=== PATIENT | male | born 1950 | race Caucasian/White ===

== ENCOUNTER 2018-11-17 13:31 | Emergency (ER) | payer OTHER ==
--- NOTE | 2018-11-17 14:16 | RAD ---
PORTABLE CHEST ONE VIEW: 11/17/2018 1:45 p.m. HISTORY: Cough. Difficulty breathing. COMPARISON: 07/14/2018 FINDINGS: Changes of median sternotomy are again seen. The heart size is normal. The lungs are well expanded wi thout focal areas of consolidation, pneumothoraces or pleural effusions. IMPRESSION: No radiographic evidence of acute cardiopulmonary process. POS: [facility]
[2018-11-17] MEDS ORDERED: Dexamethasone 4 mg/ml Vial ONE (14:22)
[2018-11-17] MEDS ORDERED: Magnesium 2 GM/50 ML BAG (IN WATER) ONE (14:22)
[2018-11-17] MEDS ORDERED: Dexamethasone 10 MG/ML VIAL ONE (14:24)
[2018-11-17 14:32] LABS: #Eosinphils 0.8 thou/uL (0.0-0.7); #Lymphocytes 1.7 thou/uL (1.20-3.40); #Monocytes 0.7 thou/uL (0.11-0.59); #Neutrophils 6.3 thou/uL (1.40-6.50); %Basophils 0.5 % (0.0-1.0); %Eosinophils 8.4 % (0.0-10.0); %Lymphocytes 17.5 % (21.0-51.0); %Monocytes 7.6 % (0.0-10.0); %Neutrophils 65.9 % (42.0-75.0); Hemoglobin 16.3 g/dL (14.0-18.0); Mean Corpuscular Hemoglobin 31.8 pg (27.0-31.0); Mean Platelet Volume 7.9 fL (7.4-10.4); Platelet Count 195 thou/uL (130-400); RBC Distribution Width 11.6 % (11.5-14.5); Red Blood Cell (RBC) Count 5.11 mill/uL (4.70-6.10); White Blood Cell (WBC) Count 9.6 thou/uL (4.8-10.8)
[2018-11-17 14:55] LABS: ALT (SGPT) 21 U/L (8-55); AST (SGOT) 18 U/L (5-34); Albumin 4.5 g/dL (3.4-4.8); Alkaline Phosphatase 71 U/L (40-110); Anion Gap 14 mmol/L (10-20); BUN (Urea Nitrogen) 12 mg/dL (8.4-25.7); Bilirubin, Total 0.9 mg/dL (0.2-1.2); CK (CPK) 135 U/L (30-200); Calc. Creatinine Clearance 0 mL/min (70-130); Calcium 9.7 mg/dL (7.8-10.44); Carbon Dioxide 22 mmol/L (23-31); Chloride 102 mmol/L (98-107); Estimated GFR-MDRD 77; Globulin 2.6 g/dL (2.4-3.5); Glucose 132 mg/dL (80-115); Lipase 47 U/L (8-78); Potassium 4.1 mmol/L (3.5-5.1); Protein, Total 7.1 g/dL (5.8-8.1); Sodium 134 mmol/L (136-145)
[2018-11-17 16:06] LABS: Bilirubin Negative (Negative); Blood, Urine Negative (Negative); Clarity Clear (Clear); Glucose, Urine (Dipstick) Normal (Negative); Leukocyte Negative Leu/uL (Negative); Nitrite Negative (Negative); Protein, Urine (Dipstick) Negative (Neg-Trace); Urobilinogen Normal mg/dL (Less than 2)
[2018-11-17 16:09] LABS: Troponin I Less than 0.010 ng/mL (< 0.028)
== END 2018-11-17 17:25 | disposition home or self-care (01) ==
LOC: ERS 13:31
DX: J18.9 Pneumonia, unspecified organism (principal); E11.9 Type 2 diabetes mellitus without complications; E78.5 Hyperlipidemia, unspecified; E03.9 Hypothyroidism, unspecified; Z79.84 Long term (current) use of oral hypoglycemic drugs; Z79.899 Other long term (current) drug therapy
CPT/HCPCS: 36415; 71045; 80053; 81003; 82550; 83605; 83690; 83880; 84484; 85025; 87040; 87804; 93005; 94644; 96365; 96366; 96375; J1100; J1956; J3475; J7620

== ENCOUNTER 2022-03-20 16:59 | Observation (INO) | payer MEDICARE ==
[2022-03-20] MEDS ORDERED: HumaLOG 300 UNITS/3 ML VIAL SC PRN ×2 (22:44)
[2022-03-20] MEDS ORDERED: Ondansetron PF 4 MG/2 ML Vial IVP PRN (22:44)
[2022-03-20] MEDS ORDERED: Acetaminophen 325 MG TAB PO PRN (22:44)
[2022-03-20] MEDS ORDERED: Dextrose 50% Abboject 50 ML SYRINGE SLOW IVP PRN (22:44)
[2022-03-20] MEDS ORDERED: Bisacodyl 10 MG SUPP PR PRN (22:44)
[2022-03-20] MEDS ORDERED: Dextrose 5% in Water 1,000 ML IV PRN (22:44)
[2022-03-20] MEDS ORDERED: Senokot S 8.6-50 MG TAB PO PRN (22:44)
[2022-03-20] MEDS ORDERED: Bisacodyl 5 MG TAB PO PRN (22:44)
[2022-03-20] MEDS ORDERED: Magnesium Sulfate In Water 4 GM in Premix Bag 1 BAG IVPB SCH (23:00)
[2022-03-20 23:05] VITALS: BMI 29.9
[2022-03-21] MEDS: Sodium Chloride 0.9% 1,000 ML IV SCH ×2 (00:23→15:06)
[2022-03-21 00:51] LABS: Troponin I Less than 0.010 ng/mL (< 0.028)
[2022-03-21 05:40] LABS: #Eosinphils 0.7 thou/uL (0.0-0.7); #Lymphocytes 1.6 thou/uL (1.20-3.40); #Monocytes 0.9 thou/uL (0.11-0.59); #Neutrophils 6.8 thou/uL (1.40-6.50); %Basophils 0.3 % (0.0-1.0); %Eosinophils 6.9 % (0.0-10.0); %Lymphocytes 15.7 % (21.0-51.0); %Neutrophils 68.1 % (42.0-75.0); Hemoglobin 15.2 g/dL (14.0-18.0); Mean Corpuscular HGB CONC 33.7 g/dL (32.0-36.0); Mean Corpuscular Hemoglobin 32.1 pg (27.0-31.0); Mean Corpuscular Volume 95.2 fl (78.0-98.0); Mean Platelet Volume 7.9 fL (7.4-10.4); Platelet Count 187 10x3/uL (130-400); RBC Distribution Width 11.4 % (11.5-14.5); Red Blood Cell (RBC) Count 4.73 mill/uL (4.70-6.10)
[2022-03-21 05:52] LABS: Hemoglobin A1c 6.8 % (4.0-6.0)
[2022-03-21] MEDS ORDERED: Levothyroxine Sodium 50 MCG TAB PO SCH (06:00)
[2022-03-21 06:12] LABS: Troponin I Less than 0.010 ng/mL (< 0.028)
[2022-03-21 06:13] LABS: Anion Gap 12 mmol/L (10-20); BUN (Urea Nitrogen) 13 mg/dL (8.4-25.7); Calc. Creatinine Clearance 124 mL/min (70-130); Calcium 9.1 mg/dL (7.8-10.44); Carbon Dioxide 26 mmol/L (23-31); Cardiac Risk 2.4 (Less than 4.5); Chloride 104 mmol/L (98-107); Cholesterol 85 mg/dl (< 200 Desired); Estimated GFR 94; Glucose 103 mg/dL (83-110); HDL Cholesterol 36 mg/dL (>60 Neg Risk); LDL Cholesterol, Calculated 32 mg/dL; Magnesium 2.4 mg/dL (1.6-2.6); Potassium 4.4 mmol/L (3.5-5.1); Sodium 138 mmol/L (136-145); Triglycerides 86 mg/dL (Less than 150)
[2022-03-21] MEDS ORDERED: Ezetimibe 10 MG TAB PO SCH (09:00)
[2022-03-21] MEDS ORDERED: Aspirin Chewable 81 MG TAB PO SCH (09:00)
[2022-03-21] MEDS ORDERED: Meclizine HCl 25 MG TAB PO PRN (12:32)
[2022-03-21] MEDS ORDERED: Meclizine HCl 25 MG TAB PO SCH (12:45)
[2022-03-21] MEDS ORDERED: Clopidogrel Bisulfate 75 MG TAB PO SCH (13:15)
[2022-03-21] MEDS: FLU VACC QS2022-23(65YR UP)/PF 240 MCG/0.7 ML SYRINGE IM ONE ×2 (13:47→17:41)
[2022-03-21] MEDS ORDERED: metFORMIN 850 MG TAB PO SCH (15:00)
[2022-03-21 17:20] VITALS: BP 102/63; TEMP 97.5
[2022-03-21] MEDS ORDERED: Atorvastatin Calcium 40 MG TAB PO SCH (21:00)
[2022-03-22] MEDS ORDERED: Rosuvastatin 20 MG TAB PO SCH (09:00)
[2022-03-22] MEDS ORDERED: Clopidogrel Bisulfate 75 MG TAB PO SCH (09:00)
== END 2022-03-21 18:58 | disposition home or self-care (01) ==
LOC: NEURO 16:59
PROVIDERS: ADMIT Internal Medicine; ATTEND Internal Medicine
DX: R42 Dizziness and giddiness (principal); I25.10 Atherosclerotic heart disease of native coronary artery without angina pectoris; I10 Essential (primary) hypertension; E11.9 Type 2 diabetes mellitus without complications; E03.9 Hypothyroidism, unspecified; I25.2 Old myocardial infarction; I65.23 Occlusion and stenosis of bilateral carotid arteries; I08.8 Other rheumatic multiple valve diseases; Z23 Encounter for immunization; Z79.02 Long term (current) use of antithrombotics/antiplatelets; Z79.4 Long term (current) use of insulin; Z79.82 Long term (current) use of aspirin; Z79.84 Long term (current) use of oral hypoglycemic drugs; Z79.890 Hormone replacement therapy; Z79.899 Other long term (current) drug therapy; Z88.0 Allergy status to penicillin; Z95.1 Presence of aortocoronary bypass graft; Z95.5 Presence of coronary angioplasty implant and graft; Z20.822 Contact with and (suspected) exposure to COVID-19
CPT/HCPCS: 70551; 80048; 80061; 82962; 83036; 83735; 84443; 84484; 85025; 90662; 93306; 93880; 94760; G0008; J3475; U0003; U0005; 36415; 36416; 90471; 96374; G0378; J7050

== ENCOUNTER 2024-09-26 12:34 | Day surgery (SDC) | payer OTHER ==
[2024-09-25 16:10] VITALS: BMI 30.5
[2024-09-26 16:06] LABS: Fluid, Triglycerides 17.0 mg/dL (Not Available); Pleural Fluid, Amylase 52.0 U/L (Not Available); Pleural Fluid, Glucose 156.0 mg/dL; Pleural Fluid, LDH 273.0 U/L (Not Available); Pleural Fluid, Protein 4.3 g/dL
[2024-09-26 16:20] LABS: RBC Count-Automated (BF) 271 /cu.mm; WBC/Nucleated-Auto (BF) 2719 /cu.mm
[2024-09-26 17:20] LABS: BF Segmented Neutrophils 50 %; Cell Count Non Hematic 35 %
== END 2024-09-26 16:07 | disposition home or self-care (01) ==
LOC: SDC 12:34
PROVIDERS: ATTEND Internal Medicine
PROC: 0W9B3ZZ Drainage of Left Pleural Cavity, Percutaneous Approach (ICD-10-PCS; principal; 2024-09-26)
DX: J90 Pleural effusion, not elsewhere classified (principal); J44.9 Chronic obstructive pulmonary disease, unspecified; I11.0 Hypertensive heart disease with heart failure; I50.9 Heart failure, unspecified; I25.10 Atherosclerotic heart disease of native coronary artery without angina pectoris; E11.9 Type 2 diabetes mellitus without complications; E03.9 Hypothyroidism, unspecified; Z95.1 Presence of aortocoronary bypass graft; Z86.73 Personal history of transient ischemic attack (TIA), and cerebral infarction without residual deficits; Z87.891 Personal history of nicotine dependence; Z90.49 Acquired absence of other specified parts of digestive tract; Z98.890 Other specified postprocedural states; Z88.0 Allergy status to penicillin; Z79.84 Long term (current) use of oral hypoglycemic drugs; Z79.899 Other long term (current) drug therapy
CPT/HCPCS: 32554; 36416; 71046; 82150; 82945; 83615; 83986; 84157; 84478; 85060; 87116; 87206; 88112; 88305; 89051

== ENCOUNTER 2024-11-04 09:34 | Day surgery (SDC) | payer OTHER ==
[2024-11-04 09:45] LABS: #Basophils 0.04 10x3/uL (0.0-0.2); #Eosinophils 0.34 10x3/uL (0.0-0.7); #Monocytes 0.89 10x3/uL (0.11-0.59); #Neutrophils 6.85 10x3/uL (1.40-6.50); %Basophils 0.5 % (0.0-1.0); %Eosinophils 3.9 % (0.0-10.0); %Lymphocytes 6.2 % (21.0-51.0); %Monocytes 10.2 % (0.0-10.0); %Neutrophils 78.9 % (42.0-75.0); Hematocrit 44.1 % (42.0-52.0); Hemoglobin 14.3 g/dL (14.0-18.0); Mean Corpuscular Hemoglobin 30.0 pg (27.0-31.0); Mean Corpuscular Volume 92.5 fL (78.0-98.0); Platelet Count 253 10x3/uL (130-400); Red Blood Cell (RBC) Count 4.77 mill/uL (4.70-6.10); White Blood Cell (WBC) Count 8.69 10x3/uL (4.8-10.8)
[2024-11-04 10:01] LABS: PTT 29.2 sec (22.9-36.1)
[2024-11-04 10:02] LABS: INR-International Normal Ratio 1.1; Prothrombin Time 14.1 sec (12.0-14.7)
[2024-11-04] MEDS ORDERED: Sodium Bicarbonate 2.5 MEQ/5 ML SDV ONE (10:03)
[2024-11-04] MEDS ORDERED: Lidocaine 1% w/Epinephrine 1:100K 20 ML VIAL ONE (10:03)
[2024-11-04] MEDS ORDERED: Lidocaine 1% PF 5 ML VIAL ONE (10:41)
== END 2024-11-04 12:29 | disposition home or self-care (01) ==
LOC: ULT 09:34
PROVIDERS: ATTEND Student in an Organized Health Care Education/Training Program
PROC: 0W9B3ZZ Drainage of Left Pleural Cavity, Percutaneous Approach (ICD-10-PCS; principal; 2024-11-04)
DX: J90 Pleural effusion, not elsewhere classified (principal); E11.9 Type 2 diabetes mellitus without complications; I50.9 Heart failure, unspecified; J44.9 Chronic obstructive pulmonary disease, unspecified; Z87.891 Personal history of nicotine dependence; Z90.49 Acquired absence of other specified parts of digestive tract; Z98.890 Other specified postprocedural states; Z88.0 Allergy status to penicillin; Z88.8 Allergy status to other drugs, medicaments and biological substances; Z79.4 Long term (current) use of insulin; Z79.82 Long term (current) use of aspirin
CPT/HCPCS: 32555; 71045; 71046; 85025; 85610; 85730; C1729; 36415

== ENCOUNTER 2024-11-06 14:47 | Emergency (ER) | payer OTHER ==
[~2024-11-06 14:47] MED LIST: Iopamidol-370 76% 500 ML MDV (1 ML CHARGE) ONE
[2024-11-06 16:55] LABS: #Basophils 0.03 10x3/uL (0.0-0.2); #Eosinophils 0.20 10x3/uL (0.0-0.7); #Monocytes 0.86 10x3/uL (0.11-0.59); #Neutrophils 6.70 10x3/uL (1.40-6.50); %Basophils 0.4 % (0.0-1.0); %Eosinophils 2.5 % (0.0-10.0); %Lymphocytes 4.0 % (21.0-51.0); %Monocytes 10.5 % (0.0-10.0); %Neutrophils 82.1 % (42.0-75.0); Hematocrit 41.3 % (42.0-52.0); Hemoglobin 14.3 g/dL (14.0-18.0); Mean Corpuscular Hemoglobin 30.4 pg (27.0-31.0); Mean Corpuscular Volume 87.7 fL (78.0-98.0); Platelet Count 231 10x3/uL (130-400); Red Blood Cell (RBC) Count 4.71 mill/uL (4.70-6.10); White Blood Cell (WBC) Count 8.16 10x3/uL (4.8-10.8)
[2024-11-06] MEDS ORDERED: Ondansetron PF 4 MG/2 ML Vial ONE (17:02)
[2024-11-06 17:04] LABS: INR-International Normal Ratio 1.2; PTT 28.2 sec (22.9-36.1); Prothrombin Time 15.3 sec (12.0-14.7)
[2024-11-06 17:19] LABS: ALT (SGPT) 74 U/L (Less than 45); AST (SGOT) 60 U/L (11-34); Albumin 3.5 g/dL (3.1-4.5); Alkaline Phosphatase 274 U/L (40-110); Anion Gap 19 mmol/L (10-20); BUN (Urea Nitrogen) 17 mg/dL (8.4-25.7); Bilirubin, Total 1.9 mg/dL (0.3-1.2); Calc. Creatinine Clearance 0 mL/min (70-130); Calcium 9.6 mg/dL (7.8-10.44); Carbon Dioxide 26 mmol/L (23-31); Chloride 97 mmol/L (98-107); Globulin 4.1 g/dL (2.4-3.5); Glucose 195 mg/dL (83-110); Potassium 3.6 mmol/L (3.5-5.1); Sodium 138 mmol/L (136-145)
[2024-11-06] MEDS ORDERED: Ketorolac Tromethamine 30 MG (1 mL) VIAL ONE (19:13)
== END 2024-11-06 19:40 | disposition home or self-care (01) ==
LOC: ERS 14:47
DX: M54.6 Pain in thoracic spine (principal); I10 Essential (primary) hypertension; E11.9 Type 2 diabetes mellitus without complications; I25.2 Old myocardial infarction; E78.5 Hyperlipidemia, unspecified; E03.9 Hypothyroidism, unspecified; Z79.84 Long term (current) use of oral hypoglycemic drugs; Z79.51 Long term (current) use of inhaled steroids; Z95.1 Presence of aortocoronary bypass graft; Z79.899 Other long term (current) drug therapy; Z79.890 Hormone replacement therapy
CPT/HCPCS: 71046; 71275; 80053; 83605; 84484; 85025; 85610; 85730; 87040; 93005; J1885; J2060; Q9967; 36415; 96361; 96374; 96375

== ENCOUNTER 2024-12-02 09:24 | Outpatient (CLI) | payer OTHER | END 2024-12-02 09:25 | disposition home or self-care (01) | LOC: LABBT 09:24 | PROVIDERS: ATTEND Student in an Organized Health Care Education/Training Program | DX: Z01.818 Encounter for other preprocedural examination (principal); J90 Pleural effusion, not elsewhere classified | CPT/HCPCS: 71046 ==

== ENCOUNTER 2024-12-02 09:30 | Inpatient (IN) | payer OTHER ==
[2024-12-02 09:45] VITALS: BMI 27.1
[2024-12-02 10:47] LABS: #Basophils 0.08 10x3/uL (0.0-0.2); #Eosinophils 0.21 10x3/uL (0.0-0.7); #Monocytes 1.21 10x3/uL (0.11-0.59); #Neutrophils 11.28 10x3/uL (1.40-6.50); %Basophils 0.6 % (0.0-1.0); %Eosinophils 1.6 % (0.0-10.0); %Lymphocytes 4.3 % (21.0-51.0); %Monocytes 9.0 % (0.0-10.0); %Neutrophils 84.0 % (42.0-75.0); Hematocrit 45.2 % (42.0-52.0); Hemoglobin 14.4 g/dL (14.0-18.0); Mean Corpuscular Hemoglobin 29.6 pg (27.0-31.0); Mean Corpuscular Volume 93.0 fL (78.0-98.0); Platelet Count 250 10x3/uL (130-400); Red Blood Cell (RBC) Count 4.86 mill/uL (4.70-6.10); White Blood Cell (WBC) Count 13.43 10x3/uL (4.8-10.8)
[2024-12-02 11:01] LABS: Anion Gap 17 mmol/L (10-20); BUN (Urea Nitrogen) 20 mg/dL (8.4-25.7); Calc. Creatinine Clearance 0 mL/min (70-130); Calcium 9.1 mg/dL (7.8-10.44); Carbon Dioxide 21 mmol/L (23-31); Chloride 101 mmol/L (98-107); Glucose 248 mg/dL (83-110); Potassium 4.5 mmol/L (3.5-5.1); Sodium 134 mmol/L (136-145)
[2024-12-03] MEDS ORDERED: CEFAZOLIN 2 GM VIAL ONE (06:21)
[2024-12-03] MEDS ORDERED: Rocuronium Bromide 10 MG/ML (10ML VIAL) ONE ×2 (06:52→10:28)
[2024-12-03] MEDS ORDERED: Lidocaine 1% PF 5 ML VIAL ONE (06:52)
[2024-12-03] MEDS ORDERED: Bupivacaine 0.25% HCL 30 ML VIAL ONE (07:02)
[2024-12-03] MEDS ORDERED: Phenylephrine 40 MG/NS 250 ML 250 ML ONE (07:17)
[2024-12-03] MEDS ORDERED: Albuterol HFA (OR) 200 PUFF INH ONE (08:03)
[2024-12-03] MEDS ORDERED: Sodium Bicarb 50 MEQ/50 ML Abboject 8.4% SYRINGE ONE ×6 (08:41→14:28)
[2024-12-03] MEDS ORDERED: Calcium Chloride 1 GM/10 ML Abboject SYRINGE ONE ×2 (09:03→12:22)
[2024-12-03] MEDS ORDERED: PHENYLEPHRINE-NS 100 MCG/ML 10 ML SYRINGE ONE ×2 (09:03→12:21)
[2024-12-03] MEDS ORDERED: HYDROmorphone 0.5 MG/0.5 ML SYR SLOW IVP PRN (09:18)
[2024-12-03] MEDS ORDERED: SUGAMMADEX SODIUM 200 MG/2 ML VIAL ONE (10:28)
[2024-12-03] MEDS ORDERED: Ondansetron PF 4 MG/2 ML Vial ONE (11:00)
[2024-12-03] MEDS ORDERED: Ondansetron PF 4 MG/2 ML Vial IVP PRN (11:16)
[2024-12-03] MEDS ORDERED: HYDROcodone/Acetaminophen 5/325 mg Tablet PO PRN ×2 (11:16)
[2024-12-03] MEDS ORDERED: hydrALAZINE 20 MG/ML VIAL SLOW IVP PRN (11:16)
[2024-12-03] MEDS ORDERED: HYDROmorphone 0.5 MG/0.5 ML SYRINGE ONE (11:23)
[2024-12-03 11:49] LABS: Actual Bicarbonate (HCO3a) 21.1 mEq/L (22-28); Base Excess (BEa) -5.5 mEq/L (-2.0 to +3.0); CO2 Tension 45.4 mmHg (35.0-45.0); Calcium, Ionized (arterial) 1.19 mmol/L (1.12-1.30); Hematocrit-ABG 43 % (42.0-52.0); Hemoglobin (Hb) 14.5 g/dL (14.0-18.0); O2 Tension (PaO2), arterial 74.2 mmHg (> 70.0); Potassium - ABG Lab 5.13 mmol/L (3.70-5.30); pH, Arterial 7.286 (7.35-7.45)
[2024-12-03 11:51] LABS: Puncture Site Arterial Line
[2024-12-03] MEDS ORDERED: Acetaminophen 325 MG TAB PO SCH (12:00)
[2024-12-03] MEDS ORDERED: Ketorolac Tromethamine 30 MG (1 mL) VIAL IVP SCH (12:00)
[2024-12-03 13:07] LABS: Actual Bicarbonate (HCO3a) 20.7 mEq/L (22-28); Base Excess (BEa) -5.4 mEq/L (-2.0 to +3.0); CO2 Tension 42.2 mmHg (35.0-45.0); Calcium, Ionized (arterial) 1.28 mmol/L (1.12-1.30); Hematocrit-ABG 43 % (42.0-52.0); Hemoglobin (Hb) 14.7 g/dL (14.0-18.0); O2 Tension (PaO2), arterial 41.7 mmHg (> 70.0); Potassium - ABG Lab 5.14 mmol/L (3.70-5.30); pH, Arterial 7.308 (7.35-7.45)
[2024-12-03 13:08] LABS: Puncture Site Arterial Line
[2024-12-03 13:23] LABS: #Basophils Less than 0.03 10x3/uL (0.0-0.2); #Eosinophils Less than 0.03 10x3/uL (0.0-0.7); #Monocytes 1.23 10x3/uL (0.11-0.59); #Neutrophils 13.72 10x3/uL (1.40-6.50); %Basophils 0.1 % (0.0-1.0); %Eosinophils 0.1 % (0.0-10.0); %Lymphocytes 2.5 % (21.0-51.0); %Monocytes 8.0 % (0.0-10.0); %Neutrophils 88.7 % (42.0-75.0); Hematocrit 40.8 % (42.0-52.0); Hemoglobin 12.9 g/dL (14.0-18.0); Mean Corpuscular Hemoglobin 29.6 pg (27.0-31.0); Mean Corpuscular Volume 93.6 fL (78.0-98.0); Platelet Count 212 10x3/uL (130-400); Red Blood Cell (RBC) Count 4.36 mill/uL (4.70-6.10); White Blood Cell (WBC) Count 15.47 10x3/uL (4.8-10.8)
[2024-12-03] MEDS ORDERED: Hydrocortisone Sod Succ/PF 100 mg/2 ml Vial IVP SCH (13:30)
[2024-12-03 13:49] LABS: Anion Gap 15 mmol/L (10-20); BUN (Urea Nitrogen) 28 mg/dL (8.4-25.7); Calc. Creatinine Clearance 87 mL/min (70-130); Calcium 10.6 mg/dL (7.8-10.44); Carbon Dioxide 21 mmol/L (23-31); Chloride 104 mmol/L (98-107); Glucose 204 mg/dL (83-110); Potassium 4.9 mmol/L (3.5-5.1); Sodium 135 mmol/L (136-145)
[2024-12-03] MEDS ORDERED: EPINEPHrine 1 MG/10 ML Abboject SYRINGE ONE ×3 (13:51→14:19)
[2024-12-03] MEDS ORDERED: Norepinephrine 8 MG/0.9% NS 250 ML ONE (13:51)
[2024-12-03] MEDS ORDERED: Hydrocortisone Sod Succ/PF 100 mg/2 ml Vial ONE (13:53)
[2024-12-03] MEDS ORDERED: Vasopressin In 0.9 % NaCl 40 UNIT in Premix 1 BAG IV SCH (14:19)
[2024-12-03 14:27] LABS: Actual Bicarbonate (HCO3a) 21.3 mEq/L (22-28); Base Excess (BEa) -8.7 mEq/L (-2.0 to +3.0); Calcium, Ionized (arterial) 1.29 mmol/L (1.12-1.30); Hematocrit-ABG 40 % (42.0-52.0); Hemoglobin (Hb) 13.7 g/dL (14.0-18.0); Potassium - ABG Lab 5.53 mmol/L (3.70-5.30)
[2024-12-03] MEDS ORDERED: Vasopressin In 0.9 % NaCl 100 ML ONE (14:27)
[2024-12-03 14:28] LABS: Actual Bicarbonate (HCO3a) 36.3 mEq/L (22-28); Base Excess (BEa) 7.7 mEq/L (-2.0 to +3.0); CO2 Tension 77.5 mmHg (35.0-45.0); Calcium, Ionized (arterial) 1.43 mmol/L (1.12-1.30); Hematocrit-ABG 30 % (42.0-52.0); Hemoglobin (Hb) 10.1 g/dL (14.0-18.0); O2 Tension (PaO2), arterial 33.0 mmHg (> 70.0); Potassium - ABG Lab 4.58 mmol/L (3.70-5.30); pH, Arterial 7.288 (7.35-7.45)
[2024-12-03 14:29] LABS: Puncture Site Arterial Line
[2024-12-03 14:30] LABS: CO2 Tension 64.6 mmHg (35.0-45.0); O2 Tension (PaO2), arterial 57.1 mmHg (> 70.0); Puncture Site Arterial Line; pH, Arterial 7.136 (7.35-7.45)
[2024-12-03] MEDS ORDERED: Cyclobenzaprine 10 MG TAB PO SCH (15:00)
[2024-12-03] MEDS ORDERED: Gabapentin 300 MG CAP PO SCH (21:00)
[2024-12-04] MEDS ORDERED: Transdermal Patch Removal TOP SCH (21:00)
== END 2024-12-03 16:21 | disposition expired | DRG 166 ==
LOC: SURG A 12-03 05:50 → CCU 12-03 13:08
PROVIDERS: ADMIT Student in an Organized Health Care Education/Training Program; ATTEND Student in an Organized Health Care Education/Training Program
PROC: 06HY33Z Insertion of Infusion Device into Lower Vein, Percutaneous Approach (ICD-10-PCS; principal; 2024-12-03)
PROC: 0BBG4ZX Excision of Left Upper Lung Lobe, Percutaneous Endoscopic Approach, Diagnostic (ICD-10-PCS; 2024-12-03)
PROC: 0BBJ4ZX Excision of Left Lower Lung Lobe, Percutaneous Endoscopic Approach, Diagnostic (ICD-10-PCS; 2024-12-03)
PROC: 3E043XZ Introduction of Vasopressor into Central Vein, Percutaneous Approach (ICD-10-PCS; 2024-12-03)
PROC: 3E04329 Introduction of Other Anti-infective into Central Vein, Percutaneous Approach (ICD-10-PCS; 2024-12-03)
PROC: 0W9B40Z Drainage of Left Pleural Cavity with Drainage Device, Percutaneous Endoscopic Approach (ICD-10-PCS; 2024-12-03)
PROC: 5A12012 Performance of Cardiac Output, Single, Manual (ICD-10-PCS; 2024-12-03)
PROC: 4A133R1 Monitoring of Arterial Saturation, Peripheral, Percutaneous Approach (ICD-10-PCS; 2024-12-03)
PROC: 03HY32Z Insertion of Monitoring Device into Upper Artery, Percutaneous Approach (ICD-10-PCS; 2024-12-03)
PROC: 4A133B1 Monitoring of Arterial Pressure, Peripheral, Percutaneous Approach (ICD-10-PCS; 2024-12-03)
PROC: 07B74ZX Excision of Thorax Lymphatic, Percutaneous Endoscopic Approach, Diagnostic (ICD-10-PCS; 2024-12-03)
PROC: 0BBP4ZX Excision of Left Pleura, Percutaneous Endoscopic Approach, Diagnostic (ICD-10-PCS; 2024-12-03)
PROC: 4A133J1 Monitoring of Arterial Pulse, Peripheral, Percutaneous Approach (ICD-10-PCS; 2024-12-03)
PROC: 0T9B70Z Drainage of Bladder with Drainage Device, Via Natural or Artificial Opening (ICD-10-PCS; 2024-12-03)
DX: C34.12 Malignant neoplasm of upper lobe, left bronchus or lung (principal); G93.41 Metabolic encephalopathy; J96.01 Acute respiratory failure with hypoxia; J96.02 Acute respiratory failure with hypercapnia; C78.2 Secondary malignant neoplasm of pleura; C34.32 Malignant neoplasm of lower lobe, left bronchus or lung; C77.1 Secondary and unspecified malignant neoplasm of intrathoracic lymph nodes; J91.0 Malignant pleural effusion; Z66 Do not resuscitate; Z51.5 Encounter for palliative care; I25.10 Atherosclerotic heart disease of native coronary artery without angina pectoris; E03.9 Hypothyroidism, unspecified; Z98.890 Other specified postprocedural states; Z95.5 Presence of coronary angioplasty implant and graft; Z95.1 Presence of aortocoronary bypass graft; R57.8 Other shock; Z90.49 Acquired absence of other specified parts of digestive tract; Z88.0 Allergy status to penicillin; I50.9 Heart failure, unspecified; I48.0 Paroxysmal atrial fibrillation; Z85.46 Personal history of malignant neoplasm of prostate; Z90.79 Acquired absence of other genital organ(s); Z92.3 Personal history of irradiation; I11.0 Hypertensive heart disease with heart failure; Z79.899 Other long term (current) drug therapy; Z79.4 Long term (current) use of insulin; Z79.890 Hormone replacement therapy; Z79.82 Long term (current) use of aspirin; I46.8 Cardiac arrest due to other underlying condition; J44.9 Chronic obstructive pulmonary disease, unspecified; E11.9 Type 2 diabetes mellitus without complications; Z87.891 Personal history of nicotine dependence; Z79.84 Long term (current) use of oral hypoglycemic drugs
CPT/HCPCS: 36415; 36416; 71045; 80048; 82805; 85025; 86850; 86900; 86901; 88112; 88305; 88307; 88341; 88342; A4314; A7048; C1776; C9250-JZ; J0169; J0665; J1171; J1642; J2270; J2272; J2405; J2704; S2900